=== PATIENT | female | born 1940 | race Caucasian/White ===

== ENCOUNTER 2016-12-09 04:53 | Observation (INO) | payer MEDICARE, OTHER ==
--- NOTE | ~2016-12-09 | DS ---
Discharge Summary [facility] [address] [place]. [address] NAME: FELIBERTO ABBOTT : 42 STATUS : ADM Keagan PAT#: [id number] AGE: 76 ADM/REG DATE : 12/09/16 MR#: [id number] REPORT SERV DATE: 12/10/16 DICTATED BY: HAMLET GREEN DATE: 12/10/16 REPORT STATUS : Draft TRANSCRIBED BY: MODL DATE: 12/10/16 ADMISSION DATE: 12/09/2016 DISCHARGE DATE: 12/10/2016 DISCHARGE DIAGNOSES: 1. Chest pain, most likely noncardiogenic, related to reflux. 2. Syncope, most likely related to hypotension. 3. Hypotension, related to use of ramipril and Coreg. 4. Congestive heart failure that is chronic. 5. Coronary artery disease, status post stent, currently on Plavix. 6. Hyperlipidemia. 7. Pacer with AICD. CONSULTANTS DURING HOSPITALIZATION: None. INVASIVE PROCEDURES DONE DURING THIS HOSPITALIZATION: None. BRIEF HISTORY OF PRESENT ILLNESS: The patient is a 76-year-old female, presented with episodes of orthostasis, lightheadedness, and blood pressure in the systolics of 80s, so she was admitted. For detailed history and physical exam, please see note dictated by Dr. Doc Wells on 12/09/2016. HOSPITAL COURSE: After being admitted to the hospital, this patient was given gentle IV fluids and we limited her fluid resuscitation to only 1 L. Her creatinine did slightly bump, it was 1.2. Her blood pressure medications were discontinued, and at this time, we believe that the patient will not be able to tolerate ramipril. Her orthostasis resolved. She feels now better and will reinitiate 3.125 mg of Coreg in the home setting. We were supposed to do a stress test on her; however, due to the holidays that has not been done and I have recommended that patient follow up with the medical billing manager as an outpatient if there is any for stress test as her troponins have remained completely normal. Her CBC has remained normal, and her electrolytes have remained normal as well. The patient understands and agrees. For the reflux, we did place her on Pepcid. She tolerated that really well as in the past. She has not been able to tolerate any PPIs, so I have given her prescription for the Pepcid. She feels well and wants to go home and recover in the home setting and then follow up in the outpatient setting. DISCHARGE DISPOSITION: Home. DISCHARGE ACTIVITY: As tolerated. DISCHARGE DIET: Low-sodium diet. DISCHARGE MEDICATIONS: Aspirin 81 mg once daily, Plavix 75 mg once daily, Pepcid 20 mg once daily, Crestor 40 mg once daily, Coreg 3.125 mg twice daily, Lasix 20 mg Saturday, Saturday, and Saturday, and Claritin 10 mg daily p.r.n. for allergies. Discharge Summary [address] [address] NAME: FELIBERTO ABBOTT : 42 STATUS : ADM Keagan PAT#: [id number] AGE: 76 ADM/REG DATE : 12/09/16 MR#: [id number] REPORT SERV DATE: 12/10/16 DICTATED BY: HAMLET GREEN DATE: 12/10/16 REPORT STATUS : Draft TRANSCRIBED BY: OLYA DATE: 12/10/16 DISCHARGE FOLLOWUP: With Dr. San as previously scheduled and Dr. Hao Caballero as previously scheduled. About 25 minutes spent planning this patient's discharge, reconciling medications, writing prescriptions, discussing hospital care, and followup with the patient and the daughter at the bedside, and documenting this discharge. DICTATED BY: Imani Marie/OLYA Hamlet Green M.D. / [id number] CC: Imani Marie M.D. Vinay Deep Madan, MD
--- NOTE | ~2016-12-09 | HP ---
History And Physical [place] [id number] [facility] [place]. [address] NAME: FELIBERTO ABBOTT : 42 STATUS : ADM Keagan PAT#: [id number] AGE: 76 ADM/REG DATE : 12/09/16 MR#: [id number] REPORT SERV DATE: 12/09/16 DICTATED BY: MARIANO CAMACHO DATE: 12/09/16 REPORT STATUS : Draft TRANSCRIBED BY: MODL DATE: 12/09/16 DATE OF ADMISSION: 12/09/2016 CHIEF COMPLAINT: A 76-year-old female presenting with chest pain and syncope. HISTORY OF PRESENT ILLNESS: The patient's history was obtained through careful interview with the patient, coupled with review of [facility] medical records. For about a week now, patient has had daily episodes of orthostasis, lightheadedness. She has been checking her blood pressure at home and it has been persistently low often in the 90s and even down to the 80s systolic associated with her symptoms. On an outpatient basis, there has been an attempt to decrease patient's chronic blood pressure medications that she takes for cardiac disease. Her ramipril has been decreased from 10 mg to 5 mg and her Coreg has been decreased from 6.25 mg to 3.125 mg, but despite this, she has continued to have low blood pressures and not feeling well. She describes fatigue and then tonight developed significant chest pain. She describes it as under her left breast. A sharp indigestion-like quality, 8/10 severity, associated with shortness of breath. Tonight, it lasted several hours before it subsided spontaneously. Then along with her dizziness and orthostatic symptoms, she developed a syncopal episode with her family. She was out for several minutes at least. There was no loss of bowel or bladder continence. No biting of the tongue. No convulsions. No fevers, chills. She has had nausea, but no vomiting. She describes significant reflux symptoms chronically. She wakes up every night with a cough likely related to reflux symptoms, and then in the [employer], she will have a significant cough after she wakes up. REVIEW OF SYSTEMS: Otherwise, a 14-point review of systems was obtained and was negative. PAST MEDICAL HISTORY: 1. Systolic congestive heart failure. Ejection fraction 34%. 2. Coronary artery disease, status post stent placement, on chronic Plavix. 3. Pacer/AICD placement. 4. Dyslipidemia. 5. Chronic hypotension. PAST SURGICAL HISTORY: 1. Pacer/AICD placement. 2. Hysterectomy. 3. Left knee surgery. 4. Benign breast surgery. 5. Appendectomy. History And Physical [place] [address] [place]. [address] NAME: FELIBERTO ABBOTT : 42 STATUS : ADM Keagan PAT#: [id number] AGE: 76 ADM/REG DATE : 12/09/16 MR#: [id number] REPORT SERV DATE: 12/09/16 DICTATED BY: MARIANO CAMACHO DATE: 12/09/16 REPORT STATUS : Draft TRANSCRIBED BY: OLYA DATE: 12/09/16 ALLERGIES: SULFA, RIFAMPIN, VANCOMYCIN. SOCIAL HISTORY: No tobacco abuse. No alcohol abuse. Lives in [place], [place]. She is , but has been in poor health from heart disease and arthritis. She has twin daughters, many grandchildren, and 15 great grandchildren. FAMILY HISTORY: Coronary artery disease. CURRENT MEDICATIONS: Include Crestor 40 mg p.o. daily; Coreg 3.25 mg p.o. b.i.d.; Plavix 75 mg p.o. daily; ramipril 5 mg p.o. daily; Lasix 20 mg on Saturday, Saturday, Saturday; aspirin 81 mg p.o. daily; Claritin. PHYSICAL EXAMINATION: VITAL SIGNS: Temperature 97.7, pulse 73, blood pressure 81/56, respiratory rate 16, and O2 saturation 93% on room air. GENERAL: A pleasant, cooperative female, no evidence of acute distress. HEENT: Pupils equal, round, and reactive to light. No conjunctival pallor. No scleral icterus. Nares are patent. Oropharynx is clear of obstruction. Mildly dry mucous membranes. NECK: Trachea midline. No thyromegaly. LYMPH: No cervical lymphadenopathy. No supraclavicular lymphadenopathy. RESPIRATORY: Clear to auscultation at bases. No wheezes, rales, or rhonchi. Normal respiratory effort. CARDIOVASCULAR: Regular rate and rhythm. Paced on the monitor. No murmurs, rubs, or gallops. No extremity edema is appreciated. ABDOMEN: Soft, nontender, nondistended. Normal bowel sounds auscultated throughout. No hepatosplenomegaly. DERMATOLOGICAL: Warm and dry extremities. No pallor. No cyanosis. PSYCHIATRIC: Normal affect. Good mood. Alert and oriented x3. LABORATORY DATA: White blood cell count 6.3, hemoglobin 14, hematocrit 42, platelets 229. Sodium 142, potassium 4.1, chloride 109, bicarb 27, BUN 19, creatinine 1.08 from baseline creatinine of 0.7, glucose 125. Brain natriuretic peptide 56. Troponin negative. STUDIES: 1. Chest x-ray by my own evaluation shows no acute cardiopulmonary process. 2. EKG by my own evaluation shows atrial pacing, anteroseptal infarct changes. 3. Interrogation of the pacemaker showed no firing of the pacemaker/AICD. ASSESSMENT AND PLAN: 1. Hypotension/syncope. Hold DEANGELO inhibitor and Coreg likely indefinitely. Try careful IV fluids. Check orthostatics. Check cortisol level. 2. Chest pain. Continue Plavix, aspirin. Check a stress test. 3. Pacer/AICD, but with a negative interrogation. 4. Chronic systolic congestive heart failure. Ejection fraction 34%. Intolerant of DEANGELO inhibitor and Coreg. We will hold these medications and monitor. History And Physical [address] [address] NAME: FELIBERTO ABBOTT : 42 STATUS : ADM Keagan PAT#: [id number] AGE: 76 ADM/REG DATE : 12/09/16 MR#: [id number] REPORT SERV DATE: 12/09/16 DICTATED BY: MARIANO CAMACHO DATE: 12/09/16 REPORT STATUS : Draft TRANSCRIBED BY: MODElo DATE: 12/09/16 L/OLYA Mariano Camacho M.D. / [id number] CC: Imani Mancia MD William L. Horton, M.D.
[2016-12-09 03:21] LABS: BASOPHILS ABSOLUTE 0.06 10/3/uL (0.0-0.16); EOSINOPHILS 5.1 %; EOSINOPHILS ABSOLUTE 0.32 10/3/uL (0.0-0.53); ER CBC TAT 0 Hrs 05 Mins; IMMATURE GRANULOCYTES 0.2 %; IMMATURE GRANULOCYTES ABSOLUTE 0.01 10/3/uL (0.0-0.11); LYMPHOCYTES 42.9 %; LYMPHOCYTES ABSOLUTE 2.71 10/3/uL (0.67-4.30); MEAN CORPUS HGB CONC 33.9 g/dL (32.0-36.0); MEAN CORPUSCULAR HEMOGLOB 29.7 pg (26.0-34.0); MEAN CORPUSCULAR VOLUME 87.6 fL (80-100); MEAN PLATELET VOLUME 9.8 fL (9.2-13.0); MONOCYTES ABSOLUTE 0.57 10/3/uL (0.21-1.20); NEUTROPHILS 41.8 %; NEUTROPHILS ABSOLUTE 2.64 10/3/uL (2.02-8.40); RBC DISTRIBUTION WIDTH 13.4 % (12.0-16.0); WHITE BLOOD CELLS 6.3 10/3/uL (4.5-10.5)
[2016-12-09 03:22] LABS: HEMATOCRIT 41.6 % (36.0-48.0); HEMOGLOBIN 14.1 g/dL (12.0-16.0); MANUAL DIFF NO %; PLATELET COUNT 229 10/3/uL (150-400); RED CELL COUNT 4.75 10/6/uL (4.0-5.6)
[2016-12-09 03:33] LABS: PROTIME (NOT ORD) 13.4 SEC (12.0-14.5)
[2016-12-09 03:36] LABS: CHEST PAIN PROFILE TAT 0 Hrs 20 Mins; CHLORIDE, SERUM 108 MMOL/L (96-112); CO2 (CARBON DIOXIDE) 27 MMOL/L (24-34); CREATININE 1.08 MG/DL (0.55-1.02); GFR AFRICAN AMERICAN 58 ML/MIN (>=60); GFR NON AFRICAN AMERICAN 50 ML/MIN (>=60); GLUCOSE, SERUM 125 MG/DL (60-99); POTASSIUM, SERUM 4.1 MMOL/L (3.5-5.3); SODIUM, SERUM 142 MMOL/L (135-148); TROPONIN I <0.02 NG/ML (<0.05)
[2016-12-09 03:37] LABS: BUN (BLOOD UREA NITROGEN) 19 MG/DL (6-23); CALCIUM, SERUM 9.4 MG/DL (8.5-10.4)
[~2016-12-09 04:53] MED LIST: ASAB PO; CENTRUM TAB1 TAB PO; CRESTOR10 PO; KLOR-CON 1010 MEQ PO; L20 PO; LAN25 PO; PLAVIX PO
[2016-12-09] MEDS ORDERED: PLAVIX PO (05:53)
[2016-12-09] MEDS ORDERED: CRESTOR40 MG PO (05:53)
[2016-12-09] MEDS ORDERED: COREG6 PO (05:53)
[2016-12-09] MEDS ORDERED: L20 PO (05:55)
[2016-12-09] MEDS ORDERED: ALTA5 PO (05:55)
[2016-12-09] MEDS ORDERED: CLARIT10 PO (05:56)
[2016-12-09] MEDS ORDERED: ASAB PO (05:56)
[2016-12-09 08:34] LABS: ASCORBIC ACID (UR NOT ORDER) NEG (NEG); BILIRUBIN, URINE NEGATIVE (NEG); KETONE, URINE NEGATIVE (NEG); LEUKOCYTE ESTERASE(NOT OR NEG (NEG); WBC (NOT ORDERED) (RFLEX) 1 (0-5)
[2016-12-09 08:35] LABS: A/G RATIO 1.2 (0.7-1.9); ALBUMIN 3.6 G/DL (3.5-5.0); ALKALINE PHOSPHATASE 91 U/L (45-117); BUN (BLOOD UREA NITROGEN) 17 MG/DL (6-23); CHLORIDE, SERUM 107 MMOL/L (96-112); CO2 (CARBON DIOXIDE) 30 MMOL/L (24-34); CREATININE 1.03 MG/DL (0.55-1.02); GFR AFRICAN AMERICAN 62 ML/MIN (>=60); GFR NON AFRICAN AMERICAN 53 ML/MIN (>=60); GLOBULIN 3.1 G/DL (2.5-4.1); GLUCOSE, SERUM 112 MG/DL (60-99); POTASSIUM, SERUM 4.2 MMOL/L (3.5-5.3); SGOT(AST) 15 U/L (5-40); SGPT(ALT) 14 U/L (5-65); SODIUM, SERUM 143 MMOL/L (135-148); TOTAL BILIRUBIN 0.2 MG/DL (0-1.2); TOTAL PROTEIN 6.7 G/DL (6.0-8.5); TROPONIN I <0.02 NG/ML (<0.05)
[2016-12-10 04:42] LABS: BASOPHILS ABSOLUTE 0.05 10/3/uL (0.0-0.16); EOSINOPHILS 5.5 %; EOSINOPHILS ABSOLUTE 0.27 10/3/uL (0.0-0.53); HEMATOCRIT 40.9 % (36.0-48.0); HEMOGLOBIN 13.6 g/dL (12.0-16.0); IMMATURE GRANULOCYTES 0.2 %; IMMATURE GRANULOCYTES ABSOLUTE 0.01 10/3/uL (0.0-0.11); LYMPHOCYTES 38.9 %; LYMPHOCYTES ABSOLUTE 1.92 10/3/uL (0.67-4.30); MEAN CORPUS HGB CONC 33.3 g/dL (32.0-36.0); MEAN CORPUSCULAR HEMOGLOB 29.6 pg (26.0-34.0); MEAN CORPUSCULAR VOLUME 88.9 fL (80-100); MONOCYTES 9.9 %; MONOCYTES ABSOLUTE 0.49 10/3/uL (0.21-1.20); NEUTROPHILS 44.5 %; NEUTROPHILS ABSOLUTE 2.19 10/3/uL (2.02-8.40); PLATELET COUNT 218 10/3/uL (150-400); RBC DISTRIBUTION WIDTH 13.4 % (12.0-16.0); WHITE BLOOD CELLS 4.9 10/3/uL (4.5-10.5)
[2016-12-10 04:45] LABS: MANUAL DIFF NO %
[2016-12-10 04:55] LABS: ALBUMIN 3.2 G/DL (3.5-5.0); BUN (BLOOD UREA NITROGEN) 17 MG/DL (6-23); CALCIUM, SERUM 8.8 MG/DL (8.5-10.4); CHLORIDE, SERUM 109 MMOL/L (96-112); CREATININE 1.23 MG/DL (0.55-1.02); GFR AFRICAN AMERICAN 50 ML/MIN (>=60); GFR NON AFRICAN AMERICAN 43 ML/MIN (>=60); GLUCOSE, SERUM 109 MG/DL (60-99); PHOSPHORUS, SERUM 3.8 MG/DL (2.5-4.5); SODIUM, SERUM 143 MMOL/L (135-148)
[2016-12-10 04:56] LABS: CO2 (CARBON DIOXIDE) 24 MMOL/L (24-34)
[2016-12-10] MEDS ORDERED: PEP20 PO (13:55)
[2016-12-10] MEDS ORDERED: COREG6 PO (13:57)
== END 2016-12-10 14:35 | disposition home or self-care (01) ==
LOC: ER 04:53 → CDU1 05:13 → CDU2 05:26
PROVIDERS: Hospitalist; Internal Medicine; Specialist
DX: I95.2 Hypotension due to drugs (principal); T46.4X5A Adverse effect of angiotensin-converting-enzyme inhibitors, initial encounter; T44.7X5A Adverse effect of beta-adrenoreceptor antagonists, initial encounter; R07.9 Chest pain, unspecified; I25.10 Atherosclerotic heart disease of native coronary artery without angina pectoris; E78.5 Hyperlipidemia, unspecified; I50.22 Chronic systolic (congestive) heart failure; Z95.810 Presence of automatic (implantable) cardiac defibrillator; Z95.5 Presence of coronary angioplasty implant and graft; Z90.710 Acquired absence of both cervix and uterus; Z90.49 Acquired absence of other specified parts of digestive tract; Z88.2 Allergy status to sulfonamides; Z88.1 Allergy status to other antibiotic agents; Z82.49 Family history of ischemic heart disease and other diseases of the circulatory system; Z98.890 Other specified postprocedural states; Z79.82 Long term (current) use of aspirin; Z79.02 Long term (current) use of antithrombotics/antiplatelets; Z79.899 Other long term (current) drug therapy
CPT/HCPCS: 71010; 71275; 80053; 80069; 81001; 82533; 83735; 83880; 84443; 84484; 85025 ×2; 85610; 85730; 93005; 93288; 96372 ×2; 96374; 96375; 99285; A9270 ×5; G0378; J2405; Q9967; 80048